=== PATIENT | female | born 1960 | race Caucasian/White ===

== ENCOUNTER 2016-12-19 06:42 | Inpatient (IN) ==
[2016-12-19] MEDS ORDERED: ACETAMINOPHEN 500 MG TABLET PO ONE (06:53)
[2016-12-19] MEDS ORDERED: SALINE FLUSH 10ml SYRINGE IVF PRN (06:53)
[2016-12-19] MEDS ORDERED: NOZIN NASAL SWAB NAS ONE ×3 (06:53→11:19)
[2016-12-19] MEDS ORDERED: LR 1,000 ML IV SCH (06:53)
[2016-12-19] MEDS ORDERED: METOCLOPRAMIDE 10mg/2ml INJECTION IVP ONE (06:53)
[2016-12-19] MEDS ORDERED: DEXAMETHASONE 4 MG/ML INJECTION IVP ONE (06:53)
[2016-12-19] MEDS ORDERED: MELOXICAM 15 MG TABLET PO ONE (06:53)
[2016-12-19] MEDS ORDERED: FAMOTIDINE PREMIX 20 MG/50 ML BAG IV ONE (06:53)
[2016-12-19] MEDS ORDERED: CEFAZOLIN 1 G INJECTION IV ONE (06:53)
[2016-12-19] MEDS ORDERED: LIDOCAINE 1% (10mg/ml) 10mL MDV SQ ONE (06:53)
[2016-12-19] MEDS ORDERED: TRANEXAMIC ACID 1,000 MG in NS 100 ML IV ONE (06:53)
[2016-12-19] MEDS ORDERED: ONDANSETRON 4 MG/2 ML INJECTION IVP ONE (06:53)
--- NOTE | 2016-12-19 07:26 | Anesthesia Preoperative Report ---
Anesthesia Preoperative Record - Date and Time Date: 12/19/16 Preoperative Diagnosis: Left Knee degeneration Proposed Procedure: Left TKA NPO Since Date: 12/19/16 NPO Since Time: 00:00 Allergies/Adverse Reactions: Allergies Allergy/AdvReac Type Severity Reaction Status Date / Time No Known Drug Allergies Allergy Verified 12/19/16 06:56 No Known Drug Intolerances AdvReac Verified 12/19/16 06:59 - Vital Signs Vital Signs: Temp Pulse Resp BP Pulse Ox 98.4 F 62 13 127/84 98 12/19/16 06:57 12/19/16 07:20 12/19/16 06:57 12/19/16 06:57 12/19/16 06:57 Height and Weight: Height 1.68 m Weight 89.7 kg Body Mass Index 31.8 - Medications Inpatient Medications: Current Medications Lactated Ringer's (Lactated Ringers) 1,000 mls @ 50 mls/hr IV .Q20H IAN Isopropyl Alcohol (Nozin Nasal Swab) 1 each JOSE 0600,1400,2200 IAN Sodium Chloride (Iv Flush) 10 - 80 ml IVF PRN PRN PRN Reason: [place] Home Medications: Home Medications Medication Instructions Recorded Confirmed Type 5MTHF 1 mg PO DAILY #0 11/27/16 12/19/16 History BuPROPion XL [Wellbutrin Xl] 1 tab PO DAILY #0 11/27/16 12/19/16 History CHOLESTCARE 1 tab PO BID #0 11/27/16 12/19/16 History ZINC COMPLEX 2 cap PO DAILY #0 11/27/16 12/19/16 History Aspirin [Aspirin EC] 81 mg PO DAILY 12/13/16 12/19/16 History Cholecalciferol [Vitamin D-3] 5,000 unit PO BID 12/13/16 12/19/16 History Is Patient on Beta Alexa?: No Beta Alexa: No - Surgical History HEENT Surgeries: Reports: Eye Surgery (bilateral lasix surgery), Tonsillectomy ( age 2) GI Surgery/Treatments: Reports: Other (colonoscopy) Musculoskeletal Surgery/Tx: Reports: Joint Surgery (rt. thumb arthroplasty), Orthopedic Surgery (Rt thumb surgery) Reproductive Surgery/Treatment: Reports: Breast Augmentation/Reduction, Section, Hysterectomy, Other (Breast augmentation 1985) - Social History Smoking Status: Former smoker Hx Chewing Tobacco Use: No Second Hand Exposure: No Time spent discussing smoking cessation with patient: 3 to 10 minutes Substance Use Type: does not use Alcohol Intake Frequency: does not drink - Pertinent Findings EKG Rhythm: Normal Sinus Rhythm - Physical Exam Respiratory Exam: Present: lungs clear Cardiovascular Exam: Present: regular rate and rhythm - Airway Assessment Mallampati Score: II TMD: 3 Fingerbreadths Neck Extension: fair Overall Assessment: no airway concerns - ASA ASA Score: 3 - Plan Regional/Trunk Block: Spinal - Discussion Discussion: Discussed risks/options/alternatives of anesthesia and questions answered. Patient consents. Nursing pain assessment noted. Attestation Statement: Prior to the delivery of any anesthetic medication, I examined the patient, developed the plan, obtained the patient's consent and discussed the risk and benefits of the procedure with the patient/guardian.
[2016-12-19] MEDS ORDERED: VANCOMYCIN 1,000 MG INJECTION ONE (07:34)
[2016-12-19] MEDS ORDERED: VANCOMYCIN 1,000 MG INJECTION IAR ONE (07:53)
[2016-12-19] MEDS ORDERED: LIDOCAINE 1% (10mg/ml) 2mL INJ PF SDV ID ONE (07:56)
[2016-12-19] MEDS ORDERED: MIDAZOLAM 2mg/2ml INJECTION ONE (08:20)
[2016-12-19] MEDS ORDERED: PROPOFOL 500 MG/50 ML VIAL IV ONE ×2 (08:27→09:00)
[2016-12-19] MEDS ORDERED: TOTAL JOINT INJECTION MIXTURE 65.25 ml OPSITE ONE (09:00)
[2016-12-19] MEDS ORDERED: PROPOFOL 40 ML ONE (09:46)
--- NOTE | 2016-12-19 10:04 | Operative Note ---
- Procedure Date of Admission: 12/19/16 Side: left Preoperative Diagnosis: knee primary DJD Postoperative Diagnosis: Same as preoperative diagnosis. Operation: total knee arthroplasty (left) Surgeon: Ashvin Pollard MD Chemical Process Analyst: AVEL Santos Complications: None. Regional/Trunk Block: Spinal Peripheral Nerve Block: Saphenous-Left Estimated Blood Loss: See Anesthesia Record. Fluids: Please see Anesthesia Record. Description of Procedure: Mrs. Uribe and her left knee were identified and marked in the preoperative holding area she is brought back to the operating suite and placed supine on the operating table. Spinal anesthetic was administered. Her left lower shoulder was prepped and draped in my normal sterile fashion. Timeout was performed. She had a slight varus deformity. An anterior midline incision followed by medial parapatellar arthrotomy was performed. The tourniquet was not used until cementing. Hemostasis was obtained with electrocautery. The patella was resurfaced to a size 32. A distal femoral osteotomy was then performed in 5 of valgus using intramedullary guide. The femur was sized at a 4 and rotation set using the epicondylar axis. Distal femoral cuts were performed with a 4-in-1 cutting block. Approximately tibia cut was then made perpendicular to its long axis using extramedullary guide. At this point remaining meniscus and osteophytes were removed and joint cocktail was injected throughout soft tissue. Trial components were placed with a 9 mm spacer. This gave her full extension and flexion and the patella tracked well. The leg was then exsanguinated and the tourniquet inflated to 250 mmHg. The tibia was then stamped at a size 4 at the proper rotation. The bone was then prepared for cementing and components were cemented into place and allowed to cure in extension. The tourniquet was then let down and hemostasis obtained with electrocautery. Betadine solution was used during the curing period for 3 minutes. 1 g of vancomycin powder was placed into the joint before the capsulotomy was repaired with #1 Vicryl. I then left my executive marketing assistant close the subcutaneous tissue and skin with 2-0 Vicryl and Monocryl. Dermabond was used on the skin. The drapes were then removed and she was taken to recovery room under the care of anesthesia.
[2016-12-19] MEDS ORDERED: ROPIVACAINE 0.5% (5mg/ml) 30ml INJ ONE (10:09)
--- NOTE | 2016-12-19 10:40 | History & Physical Update ---
- History and Physical Update Date: 12/19/16 Update: I evaluated this patient and found no changes in the history and clinical exam findings. The treatment plan and recommendations are also unchanged from the previous documentation.
--- NOTE | 2016-12-19 10:57 | XRay Report ---
Indication: postoperative image left knee replacement PROCEDURE: XR knee LT 2V: Encounter: Initial Comparison: None Findings: Postoperative changes of left total knee replacement are seen. There is expected postoperative subcutaneous gas. No evidence of hardware failure or acute fracture. No retained radiopaque surgical instruments or sponges. Overlying material causing artifact. Impression: New left total knee prosthesis without evidence of immediate complication. .
[2016-12-19] MEDS ORDERED: NAPROXEN 220 MG TABLET PO PRN (11:19)
[2016-12-19] MEDS ORDERED: LORazepam 1 MG TABLET PO PRN (11:19)
[2016-12-19] MEDS ORDERED: OXYCODONE IR PO PRN (11:19)
[2016-12-19] MEDS ORDERED: DiphenhydrAMINE 25 MG CAPSULE PO PRN (11:19)
[2016-12-19] MEDS ORDERED: DiphenhydrAMINE 50 MG/ML INJECTION IVP PRN (11:19)
[2016-12-19] MEDS ORDERED: ONDANSETRON 4 MG/2 ML INJECTION IVP PRN (11:19)
[2016-12-19] MEDS: NS 1,000 ML IV SCH (11:29)
--- NOTE | 2016-12-19 11:39 | Anesthesia Postoperative Note ---
- Date and Time Date: 12/19/16 Time: 11:38 - Status Patient Participated in Evaluation: Patient Participated in Person Vital Signs: Temp Pulse Resp BP Pulse Ox 97.5 F 53 L 18 119/73 98 12/19/16 11:04 12/19/16 10:55 12/19/16 10:55 12/19/16 10:55 12/19/16 06:57 Cardiovascular Function: Regular Pulse EKG Rhythm: Normal Sinus Rhythm Mental Status: Alert and Oriented Hydration: Taking PO Fluids Complications During Recover: None Apparent - Follow-Up Instructions Instructions: Per Surgeon
[2016-12-19] MEDS: NOZIN NASAL SWAB NAS SCH ×3 (11:41→21:10)
--- NOTE | 2016-12-19 11:43 | Anesthesia Procedure Note ---
Peripheral Nerve Blockade - Procedure Physician: Henri Pollard MD Date: 12/19/16 Surgical Procedure: Left total knee Discussion: Discussed risks/options/alternatives of anesthesia and questions answered. Patient consents. Nursing pain assessment noted. Block Start: 10:28 Block Stop: 10:34 Blocked Employed: Adductor Canal, Single Injection Indication: Post-Operative Pain Approach: Left Side Confirmed Position: Supine Patient: Consent, Risks/Benefits Discussed, Informed, Post Block Act. Discussed IV Sedation: No Initial Vital Signs: Temperature 98.4 F 12/19/16 06:57 Temperature Source Oral 12/19/16 06:57 Pulse Rate 70 12/19/16 06:57 Respiratory Rate 13 12/19/16 06:57 Blood Pressure 127/84 12/19/16 06:57 Blood Pressure Mean 98 12/19/16 06:57 Blood Pressure Position Sitting 12/19/16 06:57 Pulse Oximetry 98 12/19/16 06:57 Oxygen Delivery Method 12/19/16 06:57 Post Vital Signs: Temp Pulse Resp BP Pulse Ox 97.5 F 53 L 18 119/73 98 12/19/16 11:04 12/19/16 10:55 12/19/16 10:55 12/19/16 10:55 12/19/16 06:57 Initial Pain Pain Score: 0 Post Block Pain Score: 0 Prep: Chlorhexadine/ETOH Ultrasound Used?: Yes - Injectate Ropivacaine: 20 (0.5%) Was Epi 1:200,000 Used?: No Injection: Injection made incrementally with constant monitoring and aspiration every ml
[2016-12-19] MEDS ORDERED: ACETAMINOPHEN 500 MG TABLET PO SCH (13:00)
[2016-12-19] MEDS: ACETAMINOPHEN 325 MG TABLET PO SCH ×3 (13:33→21:10)
[2016-12-19] MEDS: OXYCODONE IR 5 MG TABLET PO PRN ×4 (13:35→20:12)
[2016-12-19] MEDS: CEFAZOLIN 2 G in NS 100 ML IV SCH (16:36)
[2016-12-19] MEDS ORDERED: CEFAZOLIN 2 G in NS 100 ML IV SCH (17:30)
[2016-12-19] MEDS: ASPIRIN *EC* 325 MG TABLET PO SCH (21:09)
[2016-12-19] MEDS ORDERED: SENNOSIDES 8.6 MG TABLET PO SCH (22:00)
[2016-12-19] MEDS: DOCUSATE SODIUM 100 MG CAPSULE PO SCH (22:32)
[2016-12-20] MEDS: OXYCODONE IR 5 MG TABLET PO PRN ×3 (00:26→09:04)
[2016-12-20] MEDS ORDERED: CEFAZOLIN 2 G in NS 100 ML IV SCH (00:30)
[2016-12-20] MEDS: NS 1,000 ML IV SCH (03:28)
[2016-12-20] MEDS: NOZIN NASAL SWAB NAS SCH ×2 (04:45→06:22)
[2016-12-20] MEDS: CEFAZOLIN 2 G in NS 100 ML IV SCH (04:45)
--- NOTE | 2016-12-20 08:08 | Orthopedic Progress Note ---
Date: Subjective/Severity of Illness: Doing well overall. Pain controlled. No chest pain or shortness of breath. Orthopedic Objective PO Vital signs: Temp Pulse Resp BP Pulse Ox 97.5 F 67 16 135/86 100 12/20/16 08:00 12/20/16 08:00 12/20/16 08:00 12/20/16 08:00 12/20/16 08:00 Height and Weight: Height 5 ft 6 in Weight 89.7 kg Body Mass Index 31.8 - Constitutional General Appearance: Present: no acute distress - Respiratory Exam Present: non-labored - Cardiovascular Exam Present: pedal pulses intact - Abdominal Exam Present: soft - Extremities Exam Extremities: Absent: calf tenderness - Neurological Exam Present: no deficits - Psychiatric Exam Present: alert - Wound Management Left Knee Dressing Status: Dry & Intact Primary Dressing: Mepilex - Labs Result Diagrams: 12/20/16 04:38 12/20/16 04:38 Abnormal lab results 12/20/16 12/20/16 Range/Units 04:38 04:38 WBC 13.5 H (4.5-11.0) T/MM3 Hgb 11.9 L (12-16) GM/DL MPV 9.2 L (9.4-12.4) UM3 Chloride 108 H (98-107) MEQ/L H & H 12/20/16 Range/Units 04:38 Hgb 11.9 L (12-16) GM/DL Hct 36.4 (36-46) % Orthopedic Assessment and Plan (1) Total knee replacement status Status: Acute Qualifiers: Laterality: left Qualified Code(s): Z96.652 - Presence of left artificial knee joint Assessment and Plan: - Doing well overall - Continue PT/OT for mobilization and ADLs - Continue mechanical and chemical DVT prophylaxis - Continue current pain management - Plan on D/C later today pending therapy Hospital Course Summary Disclaimer: The visit summary below is not to be considered part of the above Progress Note.
[2016-12-20] MEDS: DOCUSATE SODIUM 100 MG CAPSULE PO SCH (08:32)
[2016-12-20] MEDS: ASPIRIN *EC* 325 MG TABLET PO SCH (08:32)
[2016-12-20] MEDS: ACETAMINOPHEN 325 MG TABLET PO SCH (08:32)
[2016-12-20] MEDS ORDERED: BuPROPion XL 150mg (24HR) TABLET PO SCH (09:00)
[2016-12-20] MEDS ORDERED: POLYETHYL GLYCOL 3350 17gm PACKET PO SCH (09:00)
[2016-12-20] MEDS ORDERED: SENNOSIDES 8.6 MG TABLET PO PRN (10:34)
--- NOTE | 2016-12-20 13:04 | Discharge Summary ---
Discharge Plan - Med Rec/Dispo Referrals/Follow Up: Henri Pollard MD [Physician] - 01/10/17 10:30 am Ed[place]undo Instructions: [facility] [place], [facility] Ortho Postop Instructions Additional Instructions: Advanced Therapy at the [facility] in [place] on 12/22/2016 at 12pm. Please bring insurance cards and medication list. Prescriptions: New Acetaminophen [Tylenol] 650 mg PO QID Aspirin *EC* [Ecotrin] 325 mg PO BID #84 Milk of Magnesia [Mom] 30 ml PO DAILY Naproxen Sodium [All Day Relief] 440 mg PO BID PRN PRN Reason: Pain Oxycodone *Ir* [Roxicodone *Ir*] 5 - 15 mg PO Q3H PRN #60 PRN Reason: Breakthrough Pain Peg 3350 17 G Packet [Miralax] 17 gm PO DAILY packet Docusate Sodium [Colace] 100 mg PO BID cap Continue CHOLESTCARE 1 tab PO BID #0 ZINC COMPLEX 2 cap PO DAILY #0 BuPROPion XL [Wellbutrin Xl] 1 tab PO DAILY #0 Cholecalciferol [Vitamin D-3] 5,000 unit PO BID Discontinued Aspirin [Aspirin EC] 81 mg PO DAILY 5MTHF 1 mg PO DAILY #0 - Disposition 01 Discharged Home, Self-Care
--- NOTE | 2016-12-20 13:11 | Discharge Summary ---
Orthopedic Discharge Info Date of admission: 12/19/16 06:42 Primary care physician: Dustin Logan MD Attending Physician: Henri Pollard MD Consults: 12/19/16 06:53 Consult to Anesthesiology [CONS] Routine Consulting Provider: AVEL Hall Reason For Exam: Preoperative Assessment 12/19/16 11:19 Case Management Consult [CONS] Routine Reason For Exam: Discharge Planning DME-Walker [CONS] Routine Height: 5 ft 6 in Weight: 197 lb 12.074 oz Comment: change dressing in 2 weeks Total Joint Outpatient Therapy [CONS] Routine Comment: change dressing in 2 weeks - Discharge Diagnosis (1) Total knee replacement status Qualifiers: Laterality: left Qualified Code(s): Z96.652 - Presence of left artificial knee joint Status: Acute - Procedures Procedures: L TKA - Laboratory Result Diagrams: 12/20/16 04:38 12/20/16 04:38 Laboratory: Abnormal lab results 12/20/16 12/20/16 Range/Units 04:38 04:38 WBC 13.5 H (4.5-11.0) T/MM3 Hgb 11.9 L (12-16) GM/DL MPV 9.2 L (9.4-12.4) UM3 Chloride 108 H (98-107) MEQ/L H & H 12/20/16 Range/Units 04:38 Hgb 11.9 L (12-16) GM/DL Hct 36.4 (36-46) % Orthopedic Discharge HPI - HPI Comments This patient was admitted for elective surgical tx of end stage degenerative joint disease that failed to respond to conservative treatment. Further details of this is found in the admission H&P. Orthopedic Hospital Course Hospital course: 12/20/16 13:10 After appropriate preoperative clearance and signing of operative consent, the patient was given IV antibiotics, according to orthopedic protocol. The patient was taken to the operating room and underwent elective left total knee arthroplasty. Following surgery, antibiotics were discontinued less than 24 hours according to joint protocol. Appropriate anticoagulants were initiated and SCDs added for DVT prevention. The dressing was clean, dry, and intact. Pain control was obtained via multimodal approach. Bowel motivation addressed with scheduled and PRN medications. Early mobilization was initiated through PT services. Discharge arrangements made by a collaborative effort between the patient and Case Management. Follow-up is scheduled in 2-3 weeks. Discharge instructions given by orthopedic providers and nursing staff at discharge. Discharge condition was good. Ongoing care required?: No Discharge Plan - Med Rec/Dispo Referrals/Follow Up: Henri Pollard MD [Physician] - 01/10/17 10:30 am Edmundo Instructions: [facility] [place] General Instructions, [facility] [place] Ortho Postop Instructions Additional Instructions: Advanced Therapy at the [facility] in [place] on 12/22/2016 at 12pm. Please bring insurance cards and medication list. Prescriptions: New Acetaminophen [Tylenol] 650 mg PO QID Aspirin *EC* [Ecotrin] 325 mg PO BID #84 Milk of Magnesia [Mom] 30 ml PO DAILY Naproxen Sodium [All Day Relief] 440 mg PO BID PRN PRN Reason: Pain Oxycodone *Ir* [Roxicodone *Ir*] 5 - 15 mg PO Q3H PRN #60 PRN Reason: Breakthrough Pain Peg 3350 17 G Packet [Miralax] 17 gm PO DAILY packet Docusate Sodium [Colace] 100 mg PO BID cap Continue CHOLESTCARE 1 tab PO BID #0 ZINC COMPLEX 2 cap PO DAILY #0 BuPROPion XL [Wellbutrin Xl] 1 tab PO DAILY #0 Cholecalciferol [Vitamin D-3] 5,000 unit PO BID Discontinued Aspirin [Aspirin EC] 81 mg PO DAILY 5MTHF 1 mg PO DAILY #0 - Disposition 01 Discharged Home, Self-Care
[2016-12-21] MEDS ORDERED: BISACODYL 10 MG SUPPOSITORY RECTALLY SCH (20:00)
== END 2016-12-20 14:21 | disposition home or self-care (01) | DRG 470 ==
LOC: SRG 06:42
PROVIDERS: ADMIT Orthopaedic Surgery; ATTEND Orthopaedic Surgery